=== PATIENT | female | born 1940 | race Caucasian/White ===

== ENCOUNTER 2024-08-14 09:55 | Emergency (ER) | payer MEDICARE, BC ==
[~2024-08-14] VITALS: Ht 147.3 cm; Wt 55.3 kg
[2024-08-14] MEDS ORDERED: LEVO112T2 PO (10:11)
[2024-08-14] MEDS ORDERED: NEBI5TAB8 PO (10:11)
[2024-08-14] MEDS ORDERED: MEMA10TA PO (10:11)
[2024-08-14] MEDS ORDERED: RIVA3CAP17 PO (10:11)
[2024-08-14 10:35] LABS: BASOPHILS # (AUTO) 0.1 K/UL (0.0-0.2); BASOPHILS % (AUTO) 1.4 % (0.0-2.0); EOSINOPHILS # (AUTO) 0.2 K/uL (0.0-0.7); EOSINOPHILS % (AUTO) 2.8 % (0.0-7.0); LYMPHOCYTES # (AUTO) 2.5 K/uL (0.8-4.8); LYMPHOCYTES % (AUTO) 34.9 % (20.5-51.5); MEAN CORPUSCULAR HEMOGLOBIN 29.5 uug (24.7-32.8); MEAN CORPUSCULAR HGB CONC 33 g/dL (32.3-35.6); MEAN CORPUSCULAR VOLUME 88.5 fL (75.5-95.3); MONOCYTES # (AUTO) 0.7 K/uL (0.1-1.30); MONOCYTES % (AUTO) 9.1 % (0.0-11.0); NEUTROPHILS # (AUTO) 3.7 K/uL (1.8-8.9); NEUTROPHILS % (AUTO) 51.8 % (38.5-71.5); PLATELET COUNT (AUTO) 313 K/uL (179-408); RED CELL DISTRIBUTION WIDTH 14.1 % (12.3-17.7); WHITE BLOOD COUNT (AUTO) 7.2 K/uL (3.8-11.8)
[2024-08-14 10:46] LABS: CALCIUM 9.3 mg/dL (8.5-10.1); CARBON DIOXIDE 27 mmol/L (21-32); CHLORIDE 106 mmol/L (98-107); CREATININE 0.8 mg/dL (0.6-1.3); GLUCOSE 107 mg/dL (74-106); SODIUM SERUM 142 mmol/L (136-145); UREA NITROGEN, BLOOD 13 mg/dL (7-18)
[2024-08-14 10:55] LABS: DIFFERENTIAL COMMENT 1
[2024-08-14 10:59] LABS: ALANINE AMINOTRANSFERASE 16 U/L (14-59); ALBUMIN 3.5 g/dL (3.4-5.0); ALKALINE PHOSPHATASE 72 U/L (50-136); ASPARTATE AMINOTRANSFERASE 23 U/L (15-37); BILIRUBIN,DIRECT 0.1 mg/dL (0.0-0.2); BILIRUBIN,TOTAL 0.5 mg/dL (0.2-1.0); NT-PRO BNP 1584 pg/mL (0-125); TOTAL PROTEIN, SERUM 7.2 g/dL (6.4-8.2)
[2024-08-14] MEDS ORDERED: MAGNESIUM HYDROXIDE 30 ML LIQUID UDC PO PRN (13:30)
[2024-08-14] MEDS ORDERED: REMEDY ESSENTIAL ZINC PASTE 113 GM TP PRN (13:30)
[2024-08-14] MEDS ORDERED: ONDANSETRON 4 MG/2 ML VIAL IV PRN (13:30)
[2024-08-14] MEDS ORDERED: ENOXAPARIN SODIUM 30 MG/0.3 ML DISP.SYRIN SQ SCH (13:30)
[2024-08-14] MEDS ORDERED: ACETAMINOPHEN 325 MG TABLET PO PRN (13:30)
[2024-08-14] MEDS ORDERED: METOPROLOL TARTRATE 5 MG/5 ML VIAL IVP ONE ×2 (14:01→16:21)
[2024-08-14] MEDS: METOPROLOL TARTRATE 5 MG/5 ML VIAL IVP ONE ×2 (14:11→16:34)
[2024-08-14] MEDS ORDERED: METOPROLOL TARTRATE 50 MG TABLET ONE (16:21)
[2024-08-14 16:34] VITALS: BP 128/89
[2024-08-14] MEDS: METOPROLOL TARTRATE 50 MG TABLET PO ONE (16:34)
[2024-08-14] MEDS ORDERED: RIVASTIGMINE TARTRATE 3 MG CAPSULE PO SCH ×2 (17:00→17:24)
[2024-08-14] MEDS ORDERED: MEMANTINE HCL 10 MG TABLET PO SCH (17:22)
[2024-08-14 17:40] VITALS: O2SAT 98
[2024-08-15] MEDS ORDERED: LEVOTHYROXINE SODIUM 112 MCG TABLET PO SCH (07:00)
[2024-08-15] MEDS ORDERED: ASPIRIN 81 MG TAB.CHEW PO SCH (09:00)
[2024-08-15] MEDS ORDERED: Medication Not On Formulary EA (Nebivolol Hcl (Bystolic) 2.5 MG) PO SCH (09:00)
== END 2024-08-14 18:01 | disposition left against medical advice (07) ==
LOC: ER 09:55
DX: I49.9 Cardiac arrhythmia, unspecified (principal); I21.A1 Myocardial infarction type 2; E03.9 Hypothyroidism, unspecified; F02.80 Dementia in other diseases classified elsewhere, unspecified severity, without behavioral disturbance, psychotic disturbance, mood disturbance, and anxiety; G20.A1 Parkinson's disease without dyskinesia, without mention of fluctuations; I11.0 Hypertensive heart disease with heart failure; I50.9 Heart failure, unspecified; I25.10 Atherosclerotic heart disease of native coronary artery without angina pectoris; K21.9 Gastro-esophageal reflux disease without esophagitis; Z79.890 Hormone replacement therapy; Z79.899 Other long term (current) drug therapy; Z95.1 Presence of aortocoronary bypass graft; Z88.7 Allergy status to serum and vaccine
CPT/HCPCS: 99291; 93307; 96374; 71045; 80076; 80048; 83880; 84436; 84443; 85025; 85379; 85730; 84484 ×3; 36415; 93005; 96376; J3490 ×2; 70030-TC; A4606; A4663